=== PATIENT | female | born 1995 | race Hispanic/Latino ===

== ENCOUNTER 2020-12-24 21:31 | Emergency (ER) | payer SELFPAY ==
[~2020-12-24] VITALS: Ht 172.7 cm; Wt 170.1 kg
[2020-12-24] MEDS ORDERED: CEPHALEXIN500 MG PO (22:21)
[2020-12-24] MEDS ORDERED: VENTOLIN HFA18 GM INH (22:22)
[2020-12-24] MEDS ORDERED: BACITRACIN ZINC 0.9GM TP ONE ×2 (22:30→22:35)
[2020-12-24 22:37] VITALS: BP 166/91
== END 2020-12-24 22:37 | disposition home or self-care (01) ==
LOC: FSED 21:47
DX: T25.221A Burn of second degree of right foot, initial encounter (principal); M79.671 Pain in right foot; X15.8XXA Contact with other hot household appliances, initial encounter; Y92.008 Other place in unspecified non-institutional (private) residence as the place of occurrence of the external cause; J45.909 Unspecified asthma, uncomplicated; E66.01 Morbid (severe) obesity due to excess calories
CPT/HCPCS: 99283